=== PATIENT | male | born 1955 | race Caucasian/White ===

== ENCOUNTER 2017-10-29 07:56 | Inpatient (IN) | payer BC ==
[2017-10-29] VITALS (8 sets, daily range): BP systolic 164–207; BP diastolic 63–92
[~2017-10-29] VITALS: Ht 195.6 cm; Wt 129.0 kg
[2017-10-29 08:34] LABS: HEMATOCRIT 44.2 % (38.0-50.0); HEMOGLOBIN 15.6 G/DL (12.5-16.6); MCH 30.3 PG (29.0-34.0); MCHC 35.3 G/DL (30.0-36.0); MCV 85.8 FL (86-99); PLATELET COUNT 268 K/uL (156-360); RBC DIS.WIDTH-CV 11.7 % (11.8-14.6); RBC DIS.WIDTH-SD 36.5 % (39-53); RED BLOOD COUNT 5.15 M/uL (4.00-5.50); WHITE BLOOD COUNT 9.3 K/uL (4.1-10.2)
[2017-10-29 08:47] LABS: CHLORIDE 100 mEq/L (99-109); POTASSIUM 4.9 mEq/L (3.7-5.4); SODIUM 130 mEq/L (136-147)
[2017-10-29 08:52] LABS: CREATININE 1.8 mg/dL (0.6-1.3); GFR ESTIMATE (CALCULATED) 41 mL/min/ (58.99-99999)
[2017-10-29 08:53] LABS: GLUCOSE 460 mg/dL (70-99); UREA NITROGEN (BUN) 25 mg/dL (9-23)
[2017-10-29 08:55] LABS: TROP-I INTERPRETATION NEGATIVE; TROPONIN-I < 0.01 ng/mL (0.0-0.30)
[2017-10-29 09:33] LABS: CARBON DIOXIDE (BICARBONATE) 13.7 MEQ/L (20-31)
[2017-10-29] MEDS ORDERED: LANTUS 3 M100 UNITS1 SC (10:02)
[2017-10-29 12:25] LABS: CHLORIDE 107 mEq/L (99-109); SODIUM 134 mEq/L (136-147)
[2017-10-29 12:27] LABS: GLUCOSE 359 mg/dL (70-99)
[2017-10-29 12:31] LABS: CREATININE 1.5 mg/dL (0.6-1.3); GFR ESTIMATE (CALCULATED) 51 mL/min/ (58.99-99999)
[2017-10-29 12:32] LABS: UREA NITROGEN (BUN) 24 mg/dL (9-23)
[2017-10-29 15:05] LABS: APPEARANCE CLEAR ((CLEAR)); BILIRUBIN NEGATIVE; BLOOD NEGATIVE; COLOR STRAW ((YELLOW)); GLUCOSE (STRIP) >=500; KETONES 80; LEUKOCYTES NEGATIVE; NITRITE NEGATIVE; PROTEIN (STRIP) 100; UROBILINOGEN 0.2 MG/DL (0.2-1.0)
[2017-10-29 15:11] LABS: BACTERIA NONE SEEN /HPF; EPITHELIAL CELLS RARE /HPF; HYALINE CASTS 0-5 /LPF; MUCUS 1+ /LPF; RED BLOOD CELLS 0-5 /HPF (0-5); UCUL ADDED? NO; WHITE BLOOD CELLS 0-5 /HPF (0-5)
[2017-10-29 15:38] LABS: CHLORIDE 107 mEq/L (99-109); POTASSIUM 4.8 mEq/L (3.7-5.4); SODIUM 132 mEq/L (136-147)
[2017-10-29 15:40] LABS: GLUCOSE 291 mg/dL (70-99)
[2017-10-29 15:42] LABS: HEMOGLOBIN A1c (GLYCOHEMOGLOB) 12.3 % HGB (Below 5.7)
[2017-10-29 15:44] LABS: CREATININE 1.2 mg/dL (0.6-1.3); GFR ESTIMATE (CALCULATED) > 59 mL/min/ (58.99-99999); PHOSPHORUS 2.3 mg/dL (2.5-4.9)
[2017-10-29 15:45] LABS: UREA NITROGEN (BUN) 21 mg/dL (9-23)
[2017-10-29 15:47] LABS: TROP-I INTERPRETATION NEGATIVE; TROPONIN-I 0.01 ng/mL (0.0-0.30)
[2017-10-29] MEDS ORDERED: NOVOLOG MI100 UNIT/3 SC (15:47)
[2017-10-29 15:48] LABS: TROP-I INTERPRETATION NEGATIVE; TROPONIN-I < 0.01 ng/mL (0.0-0.30)
[2017-10-29] MEDS ORDERED: ASPIR-LOW81 MG PO (15:48)
[2017-10-29] MEDS ORDERED: RAMIPRIL10 MG PO (15:49)
[2017-10-29] MEDS ORDERED: BENADRYL25 MG PO (15:49)
[2017-10-29] MEDS ORDERED: LORAZEPAM0.5 MG PO (15:49)
[2017-10-29] MEDS ORDERED: PLAVIX75 MG PO (15:50)
[2017-10-29] MEDS ORDERED: NABUMETONE500 MG PO (15:50)
[2017-10-30] VITALS (18 sets, daily range): BP systolic 135–211; BP diastolic 66–106
[2017-10-30 01:04] LABS: CHLORIDE 109 mEq/L (99-109); POTASSIUM 4.1 mEq/L (3.7-5.4); SODIUM 135 mEq/L (136-147)
[2017-10-30 01:05] LABS: GLUCOSE 199 mg/dL (70-99)
[2017-10-30 01:09] LABS: CREATININE 0.8 mg/dL (0.6-1.3); GFR ESTIMATE (CALCULATED) > 59 mL/min/ (58.99-99999); PHOSPHORUS 1.7 mg/dL (2.5-4.9)
[2017-10-30 01:10] LABS: UREA NITROGEN (BUN) 14 mg/dL (9-23)
[2017-10-30 05:55] LABS: ALBUMIN 3.6 G/DL (3.2-4.8); ALKALINE PHOSPHATASE 68 IU/L (3-129); ALT (GPT) 9 IU/L (3-49); AST (GOT) 14 IU/L (2-34); CHLORIDE 106 MEQ/L (99-109); CREATININE 0.7 MG/DL (0.6-1.3); GFR ESTIMATE (CALCULATED) > 59 mL/min/ (58.99-99999); GLUCOSE 150 mg/dL (70-99); PHOSPHORUS 1.7 mg/dL (2.5-4.9); POTASSIUM 4.1 MEQ/L (3.7-5.4); SODIUM 133 MEQ/L (136-147); TOTAL PROTEIN 6.8 G/DL (6.4-8.3); UREA NITROGEN (BUN) 13 mg/dL (9-23)
[2017-10-30 05:56] LABS: HEMATOCRIT 43.5 % (38.0-50.0); MCH 29.8 PG (29.0-34.0); MCHC 34.5 G/DL (30.0-36.0); MCV 86.3 FL (86-99); PLATELET COUNT 211 K/uL (156-360); RBC DIS.WIDTH-CV 12.1 % (11.8-14.6); RBC DIS.WIDTH-SD 38.2 % (39-53); RED BLOOD COUNT 5.04 M/uL (4.00-5.50); WHITE BLOOD COUNT 6.5 K/uL (4.1-10.2)
[2017-10-30 07:04] LABS: TOTAL BILIRUBIN 0.3 MG/DL (0.0-1.0)
[2017-10-30 09:59] LABS: CHLORIDE 103 MEQ/L (99-109); CREATININE 0.7 MG/DL (0.6-1.3); GFR ESTIMATE (CALCULATED) > 59 mL/min/ (58.99-99999); GLUCOSE 145 mg/dL (70-99); PHOSPHORUS 1.8 mg/dL (2.5-4.9); POTASSIUM 3.8 MEQ/L (3.7-5.4); SODIUM 134 MEQ/L (136-147); UREA NITROGEN (BUN) 11 mg/dL (9-23)
[2017-10-30 14:54] LABS: HDL CHOLESTEROL 35 MG/DL (Desirable>=40); LDL CHOLESTEROL 105 mg/dL (Desirable<100); NON-HDL CHOLESTEROL 166 mg/dL (Desirable<160); TOTAL CHOLESTEROL 201 mg/dL (Desirable<200); TRIGLYCERIDES 307 MG/DL (Normal: <150)
[2017-10-31] VITALS (7 sets, daily range): BP systolic 142–173; BP diastolic 62–79
[2017-10-31 12:34] LABS: HEMATOCRIT 39.7 % (38.0-50.0); MCH 29.4 PG (29.0-34.0); MCHC 35.3 G/DL (30.0-36.0); MCV 83.2 FL (86-99); PLATELET COUNT 228 K/uL (156-360); RBC DIS.WIDTH-CV 11.9 % (11.8-14.6); RED BLOOD COUNT 4.77 M/uL (4.00-5.50); WHITE BLOOD COUNT 4.9 K/uL (4.1-10.2)
[2017-10-31 13:31] LABS: CHLORIDE 103 MEQ/L (99-109); POTASSIUM 4.1 MEQ/L (3.7-5.4); SODIUM 133 MEQ/L (136-147)
[2017-10-31 13:38] LABS: CREATININE 0.6 MG/DL (0.6-1.3); GFR ESTIMATE (CALCULATED) > 59 mL/min/ (58.99-99999); UREA NITROGEN (BUN) 11 mg/dL (9-23)
[2017-10-31 13:39] LABS: GLUCOSE 300 mg/dL (70-99)
[2017-11-01 00:09] VITALS: BP 164/71
[2017-11-01 08:13] VITALS: BP 159/90
[2017-11-01] MEDS ORDERED: CEPHALEXIN500 MG PO (12:08)
[2017-11-01] MEDS ORDERED: CLONIDINE HCL0.1 MG PO (12:09)
[2017-11-01] MEDS ORDERED: ATORVASTATIN CA40 MG PO (12:09)
[2017-11-01] MEDS ORDERED: DOCUSATE SODIU100 MG PO (12:10)
[2017-11-01] MEDS ORDERED: POLYETHYLENE GL17 GM PO (12:10)
== END 2017-11-01 14:08 | disposition home or self-care (01) | DRG 638 ==
LOC: EME 07:56 → 4WEST 13:36 → EDOF 13:36 → ENRESERV 13:37 → 4WEST 16:27 → ENRESERV 10-30 21:43 → 4EAST 10-30 23:30 → ENRESERV 10-31 15:37 → 5SOUTH 10-31 17:05 → ENPENDDIS 11-01 13:20 → 5SOUTH 11-01 14:08
PROVIDERS: Emergency Medicine Emergency Medical Services; Internal Medicine; Nurse Practitioner Family
PROC: 0HDMXZZ Extraction of Right Foot Skin, External Approach (ICD-10-PCS; principal; 2017-10-31)
DX: E11.10 Type 2 diabetes mellitus with ketoacidosis without coma (principal); I65.23 Occlusion and stenosis of bilateral carotid arteries; I66.01 Occlusion and stenosis of right middle cerebral artery; N17.9 Acute kidney failure, unspecified; E11.621 Type 2 diabetes mellitus with foot ulcer; L97.519 Non-pressure chronic ulcer of other part of right foot with unspecified severity; I69.151 Hemiplegia and hemiparesis following nontraumatic intracerebral hemorrhage affecting right dominant side; E86.0 Dehydration; E78.5 Hyperlipidemia, unspecified; I10 Essential (primary) hypertension; Z72.0 Tobacco use; Z89.422 Acquired absence of other left toe(s); Z89.421 Acquired absence of other right toe(s); Z79.4 Long term (current) use of insulin; Z79.82 Long term (current) use of aspirin; Z91.19 Patient's noncompliance with other medical treatment and regimen; Z91.041 Radiographic dye allergy status; Z82.3 Family history of stroke; Z83.3 Family history of diabetes mellitus
CPT/HCPCS: 70450; 70544; 70547; 70551; 71046; 73610; 73630; 80048; 80048 91; 80053; 80061; 81003; 82010; 82803; 82948; 83036; 83605; 84100; 84484; 85027; 87040; 87070; 87075; 87077; 87147; 87186; 87205; 87641; 93005; 99281; 99285; A6021; J0360; J1644; J1815; J3475; J7030; J7040; J7050; S0028